=== PATIENT | female | born 1985 | race Caucasian/White ===

== ENCOUNTER 2018-01-22 00:40 | Emergency (ER) | payer OTHER ==
[~2018-01-22] VITALS: Ht 167.6 cm; Wt 74.8 kg
[~2018-01-22 00:40] MED LIST: AMLODIPINE BESY10 MG PO; ATIVAN1 MG PO; BACTRIM DS TAB1 EACH PO; CARISOPRODOL 3350 MG PO; CLEOCIN HCL300 MG PO; CYMBALTA30 MG PO; DIFLUCAN150 M1 PO; HYDROCHLOROTH12.5 MG PO; HYDROCODONE-APA1 TA1 PO; IBUPROFEN 800800 M1; LISINOPRIL10 MG PO; NORCO 5-325 TA1 EACH PO; NYSTATIN 1100000 U/M SW&SWALLOW; OXYCODONE HCL10 MG PO; PAXIL20 MG; PHENERGAN 25 MG25 M1 PO; PROPRANOLOL 4040 M1 PO; SEASONIQUE; SILVADENE20 GM TP; TOPAMAX200 MG PO; TRAMADOL 50 MG50 MG; TRAMADOL 50 MG50 MG PO; XANAX 0.25 MG0.25 MG PO; XANAX XR1 MG; ZPAK PO
== END 2018-01-22 04:40 | disposition home or self-care (01) ==
LOC: ER 00:40
DX: F15.10 Other stimulant abuse, uncomplicated (principal); M54.5 Low back pain; I10 Essential (primary) hypertension; G43.909 Migraine, unspecified, not intractable, without status migrainosus; M79.7 Fibromyalgia; Z90.710 Acquired absence of both cervix and uterus; F17.210 Nicotine dependence, cigarettes, uncomplicated; Z88.1 Allergy status to other antibiotic agents; Z88.0 Allergy status to penicillin